=== PATIENT | male | born 1955 | race Caucasian/White ===

== ENCOUNTER 2016-07-11 10:12 | Emergency (ER) | payer MEDICARE, OTHER ==
[~2016-07-11] VITALS: Ht 177.8 cm; Wt 75.9 kg
[2016-07-11 10:14] VITALS: BP 142/90; PULSE 105; RESP 20; O2SAT 100
--- NOTE | 2016-07-11 11:03 | DRSVH ---
PROCEDURE: X-RAY CHEST ONE VIEW, PORTABLE ([id number]) INDICATIONS: CHEST PAIN TECHNIQUE: One view of the chest was acquired. COMPARISON: [facility], CR, XR CHEST 1VW (PORTABLE), 09/23/2015, 20:16. FINDINGS: Surgical changes and devices: None. Lungs and pleura: No pleural effusions or pneumothorax. 9 mm diameter nodular density projects over the lateral aspect of the right lower lung. Lungs are otherwise clear. Mediastinum: Mediastinal contours appear normal. Heart size is normal. Bones and chest wall: No suspicious bony lesions. Overlying soft tissues appear unremarkable. IMPRESSION: 1. No acute process. 2. Right lower lung nodular density. Followup PA and lateral chest x-ray when clinically feasible is recommended for further assessment. Dictated by: Jackelin Hung M.D. on 07/11/2016 at 11:00 Approved by: Jackelin Hung M.D. on 07/11/2016 at 11:01
[2016-07-11 11:12] LABS: BASOPHILS % (AUTO) 0.2 % (0-3); MONOCYTES % (AUTO) 14.9 % (4-12); Mean Corpuscular Hemoglobin 31.8 pg (27.0-35.0); Mean Corpuscular Volume 93.1 fL (81-100); NEUTROPHILS % (AUTO) 63.1 % (40-74); Platelet Count 160 bil/L (150-400)
[2016-07-11 12:07] LABS: TROPONIN T < 0.010 ug/L (0.0-0.011)
--- NOTE | 2016-07-11 12:55 | ED.REPORT ---
HPI-Chest Pain 40 and Over Date of Service July 11, 2016 ED Provider: Fred Allen MD Patient is a 61-year-old male with history of HIV who presents to [facility] Emergency Department complaining of left-sided chest pain and shortness of breath. Intermittent chest pain began about one week ago and became worse and constant radiating to the left arm this morning. It was accompanied by some shortness of breath. He states he had the same episode of chest pain lasting about one month last year for which had negative work up in ED. Patient does have a family history of heart disease and he is an every day smoker for about 15 years. Nursing Notes Stated Complaint: POSS HEART ATTACK Chief Complaint: Chest Pain Nursing Notes Reviewed: Yes Allergies: Coded Allergies: Penicillins (Verified Allergy, Intermediate, 09/23/15) General Time Seen by MD: 11:30 Chief Complaint Chest pain Hx Obtained From: Patient Arrived By: Walk-in Sudden in Onset?: No Onset Occurred: 1 week ago Symptom Duration: Since onset Location: : Chest left Quality: Aching Radiation: : Arm left Migration/Movement: Reports: None Severity: Current: Mild Associated with: Reports: Shortness of Breath Pertinent Negative: Pt denies other symptoms Recent Healthcare: No recent doctor visit Risk Factors )( CAD Risk Stratification Family history Smoking Risk factors reviewed Past Medical History Past Medical History HIV anxiety hypoglycemic Past Surgical History none reported Family History diabetes both parents had pacemakers by 55 Smoking History Unknown if Ever Smoker Social History distant drug use Alcohol Use: 3-5 per day Drug Use: Denies drug use (Former drug user) Other Social History: Ambulatory Status Independent Review of Systems Constitutional: Denies: Chills, Fatigue, Fever, Malaise, Recent wt loss Respiratory: Reports: Shortness of breath, Denies: Dyspnea on exertion, Non-productive cough, Pleuritic pain, Wheezing Cardiovascular: Reports: Chest pain, Denies: Dyspnea on exertion, Edema, Palpitations, Syncope GI: Denies: Abdominal pain, Anorexia, Constipation, Diarrhea, Nausea, Vomiting Musculoskeletal: Denies: Back pain, Extremity swelling, Joint pain, Myalgia Skin: Denies Diaphoresis, Denies Rash, Denies Swelling, Denies Unexplained bruises Neurologic: Denies: Confusion, Dizziness, Focal weakness Psychiatric: Denies: Anxiety, Change mental status, Depression Physical Exam Initial Vital Signs Vital Signs (First) Date Time Temp Pulse Resp B/P Pulse Ox O2 Delivery O2 Flow Rate FiO2 07/11/16 10:14 36.2 105 20 142/90 100 07/11/16 13:36 Room Air Initial VS: Reviewed, Vital signs abnormal (heart rate 105) General/Constitutional: Awake, Alert, No acute distress, Well developed, Well nourished Respiratory / Chest: Breath sounds NL, No respiratory distress, No rales, No rhonchi, No wheezing Cardiovascular: Heart rate NL, No murmurs, Cap refill not delayed, Pulses = bilaterally Abdomen: Atraumatic, Soft, Non-tender, No guarding, No rebound, BS normoactive , No pulsatile mass Neck: Atraumatic, Supple, Full range of motion, No swelling, Non-tender, No JVD Back: Atraumatic, Non-tender, No muscle spasm, No CVA tenderness Lower Extremity / Pelvis / MS: No swelling, Non-tender, No erythema Skin: No rash, Warm, Dry, No swelling Neurologic: Oriented X3, Speech NL, No motor deficits, No sensory deficits Psychiatric: Affect NL, Mood NL Interpretation & Diagnostics Lab Results Interpretation Result Diagram: 07/11/16 1100 07/11/16 1100 Test 07/11/16 11:00 07/11/16 11:34 White Blood Count 6.0th/mm3 (3.8-10.1) Red Blood Count 4.66mil/mm3 (4.40-5.80) Hemoglobin 14.8g/dL (13.8-17.2) Hematocrit 43.4% (41.0-50.0) Mean Corpuscular Volume 93.1fL (81-100) Mean Corpuscular Hemoglobin 31.8pg (27.0-35.0) Mean Corpuscular Hemoglobin Concent 34.1% (32.0-37.0) Red Cell Distribution Width 15.1% (12.3-15.4) Platelet Count 160bil/L (150-400) Neutrophils (%) (Auto) 63.1% (40-74) Lymphocytes (%) (Auto) 20.3% (14-46) Monocytes (%) (Auto) 14.9% (4-12) Eosinophils (%) (Auto) 1.0% (0-5) Basophils (%) (Auto) 0.2% (0-3) Hold Blue Top Tube Received (Received) Sodium Level 136mEq/L (134-144) Potassium Level 4.1mEq/L (3.5-5.2) Chloride Level 96mEq/L (97-108) Carbon Dioxide Level 21mmol/L (18-29) Blood Urea Nitrogen 10mg/dL (8-27) Creatinine 0.47mg/dL (0.76-1.27) Estimat Glomerular Filtration Rate 194mL/min (>59) Glucose Level 107mg/dL (60-99) Calcium Level 9.4mg/dL (8.5-10.1) Magnesium Level 2.0mg/dL (1.6-2.6) Total Bilirubin 1.0mg/dL (0.0-1.2) Aspartate Amino Transf (AST/SGOT) 56U/L (0-50) Alanine Aminotransferase (ALT/SGPT) 75U/L (0-44) Alkaline Phosphatase 75U/L (25-160) Troponin T < 0.010ug/L (0.0-0.011) Total Protein 6.7g/dL (6.4-8.4) Albumin 3.9g/dL (3.4-5.0) Hold Al Top Tube Received (Received) D-Dimer < 0.50mg/L FEU (<0.50) Lab values outside NL range: no clinical significance. ECG Interpretation Time: 10:24 Interpreted by: ED physician (sinus rhythm, heart rate 90, no acute ischemic changes.) X-Ray Chest Interpretation View: Portable Interpretation / Wet Read by: Interpret - Radiologist (no acute process, right lower lung nodular density. Read by Mandeep Hung) Re-Eval/Medical Decision Med Decision/Clinical Course In summary, this is a 61-year-old male with history of HIV, (HIV positive, a viral load negative ), with intermittent sharp left-sided chest pain and shortness of breath. Chest x-ray, troponin, d-dimer, and EKG are all negative in the ED. He is a patient at the [facility] in [place] and he has an upcoming appointment with the primary care provider there. He will return to the emergency room as soon as possible if his chest pain worsens. Time of Eval: 12:50 Patient Status: Condition improved (patient rechecked, he is informed of his lab results, EKG and chest x-ray. He is informed about right lower lung nodular density that he needs to follow-up with his primary care provider. The plan for discharge was discussed. The patient understands and agrees with the plan. All questions were answered at this time.) Counseled Regarding: Diagnosis, Lab results, Need for follow-up, When/why to return to ED Discharge & Departure Shift Change Sign-Out Response to Therapy: Improved Primary Impression: Chest pain with low risk for cardiac etiology Disposition: Home Discharge Condition Condition: Stable Patient Instructions: Chest Pain (ED), Angina (ED) Additional Instructions: Thank you for seeking care at emergency room today. Lab tests, EKG, and chest x-ray are normal. This is very reassuring! This does not sound like angina, which is chest pain from the heart, and there is no damage to your heart. Because you have several risk factors for coronary artery disease, such as family history, age, sex, and smoking, you are at the higher risk of developing acute coronary syndrome. Please follow-up with your primary care provider within the next week or two as your doctor will most likely order a stress test. Please return to emergency department if you develop worsening of your symptoms. Thank you for letting us partake in your care today. Referrals: NOPCP (PCP) EDSupervising Provider for APC: Fred Allen MD Attending Statement The patient was seen and examined together with Dr. Bush on 07/11/16 and I agree with the history, exam and plan as outlined in the note above. Kathy Bush DO July 11, 2016 12:55 Fred Allen MD July 11, 2016 14:30
[2016-07-11 13:36] VITALS: BP 128/78; PULSE 74; RESP 16; O2SAT 96
== END 2016-07-11 13:37 | disposition home or self-care (01) ==
LOC: SED 10:12
DX: R07.89 Other chest pain (principal); Z88.0 Allergy status to penicillin; B20 Human immunodeficiency virus [HIV] disease